=== PATIENT | female | born 1955 | race Caucasian/White ===

== ENCOUNTER → 2017-09-27 | Day surgery (SDC) | payer OTHER ==
--- NOTE | 2017-09-26 19:31 | MH ---
cc: GEOVANNA COMBS DATE OF ADMISSION: 09/27/2017 HISTORY OF PRESENT ILLNESS: The patient is a 62-year-old 0 female with a history of pelvic pain and a right ovarian cyst. The patient desires operative intervention as she feels the pain is worsening. PAST MEDICAL HISTORY: Her past medical history is significant for: 1. Depression. 2. Duodenal ulcer. 3. Hypertension. 4. Arthritis. 5. Osteopenia. 6. Diverticular disease. PAST SURGICAL HISTORY: Her surgeries are: 1. LASIK. 2. Tonsillectomy. 3. Adenoidectomy. 4. Left ankle surgery. 5. Right hand surgery. MEDICATIONS: Her medications are: 1. Fosamax. 2. Vitamin D. ALLERGIES: 1. CELEXA. 2. PHENERGAN. 3. MELOXICAM. OB HISTORY: Negative. GYNECOLOGIC HISTORY: No history of STDs or abnormal Pap smears. She went through menopause around the age 46 and has had no bleeding since then. FAMILY HISTORY: Her father had heart disease. Her mother had dementia. Maternal aunt had breast cancer. SOCIAL HISTORY: Negative for cigarettes, alcohol or street drugs. 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 PHYSICAL EXAMINATION: HEIGHT: 5 feet 7. WEIGHT: 128. VITAL SIGNS: Her blood pressure is 130/70. GENERAL: In general, she is in no acute distress. HEART: Regular rate and rhythm. LUNGS: Clear to auscultation bilaterally. ABDOMEN: The abdomen is soft, nontender and nondistended. LOWER EXTREMITIES: Nontender and nonedematous. PELVIC: On bimanual exam, no adnexal masses or tenderness noted. Normal sized uterus. IMAGING STUDIES: Her ultrasound shows a normal sized uterus and a right ovarian cyst that measures 3 cm with some complex features. It has been stable since May. LABORATORY DATA: She had a negative CA-125. IMPRESSION: 1. Pelvic pain. 2. Right ovarian cyst. PLAN: The plan is for a laparoscopic bilateral salpingo-oophorectomy. The risks, benefits and alternatives have been reviewed. The patient does desire to proceed. MD CEASAR Larry/JCC /6:36 PM /7:20 PM MTDPedro
--- NOTE | 2017-09-26 19:31 | MH ---
cc: GEOVANNA COMBS DATE OF ADMISSION: 09/27/2017 HISTORY OF PRESENT ILLNESS: The patient is a 62-year-old 0 female with a history of pelvic pain and a right ovarian cyst. The patient desires operative intervention as she feels the pain is worsening. PAST MEDICAL HISTORY: Her past medical history is significant for: 1. Depression. 2. Duodenal ulcer. 3. Hypertension. 4. Arthritis. 5. Osteopenia. 6. Diverticular disease. PAST SURGICAL HISTORY: Her surgeries are: 1. LASIK. 2. Tonsillectomy. 3. Adenoidectomy. 4. Left ankle surgery. 5. Right hand surgery. MEDICATIONS: Her medications are: 1. Fosamax. 2. Vitamin D. ALLERGIES: 1. CELEXA. 2. PHENERGAN. 3. MELOXICAM. OB HISTORY: Negative. GYNECOLOGIC HISTORY: No history of STDs or abnormal Pap smears. She went through menopause around the age 46 and has had no bleeding since then. FAMILY HISTORY: Her father had heart disease. Her mother had dementia. Maternal aunt had breast cancer. SOCIAL HISTORY: Negative for cigarettes, alcohol or street drugs. 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 PHYSICAL EXAMINATION: HEIGHT: 5 feet 7. WEIGHT: 128. VITAL SIGNS: Her blood pressure is 130/70. GENERAL: In general, she is in no acute distress. HEART: Regular rate and rhythm. LUNGS: Clear to auscultation bilaterally. ABDOMEN: The abdomen is soft, nontender and nondistended. LOWER EXTREMITIES: Nontender and nonedematous. PELVIC: On bimanual exam, no adnexal masses or tenderness noted. Normal sized uterus. IMAGING STUDIES: Her ultrasound shows a normal sized uterus and a right ovarian cyst that measures 3 cm with some complex features. It has been stable since May. LABORATORY DATA: She had a negative CA-125. IMPRESSION: 1. Pelvic pain. 2. Right ovarian cyst. PLAN: The plan is for a laparoscopic bilateral salpingo-oophorectomy. The risks, benefits and alternatives have been reviewed. The patient does desire to proceed. MD CEASAR Larry/JCC /6:36 PM /7:20 PM MTDPedro
--- NOTE | 2017-09-26 19:31 | MH ---
cc: GEOVANNA COMBS DATE OF ADMISSION: 09/27/2017 HISTORY OF PRESENT ILLNESS: The patient is a 62-year-old 0 female with a history of pelvic pain and a right ovarian cyst. The patient desires operative intervention as she feels the pain is worsening. PAST MEDICAL HISTORY: Her past medical history is significant for: 1. Depression. 2. Duodenal ulcer. 3. Hypertension. 4. Arthritis. 5. Osteopenia. 6. Diverticular disease. PAST SURGICAL HISTORY: Her surgeries are: 1. LASIK. 2. Tonsillectomy. 3. Adenoidectomy. 4. Left ankle surgery. 5. Right hand surgery. MEDICATIONS: Her medications are: 1. Fosamax. 2. Vitamin D. ALLERGIES: 1. CELEXA. 2. PHENERGAN. 3. MELOXICAM. OB HISTORY: Negative. GYNECOLOGIC HISTORY: No history of STDs or abnormal Pap smears. She went through menopause around the age 46 and has had no bleeding since then. FAMILY HISTORY: Her father had heart disease. Her mother had dementia. Maternal aunt had breast cancer. SOCIAL HISTORY: Negative for cigarettes, alcohol or street drugs. 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 PHYSICAL EXAMINATION: HEIGHT: 5 feet 7. WEIGHT: 128. VITAL SIGNS: Her blood pressure is 130/70. GENERAL: In general, she is in no acute distress. HEART: Regular rate and rhythm. LUNGS: Clear to auscultation bilaterally. ABDOMEN: The abdomen is soft, nontender and nondistended. LOWER EXTREMITIES: Nontender and nonedematous. PELVIC: On bimanual exam, no adnexal masses or tenderness noted. Normal sized uterus. IMAGING STUDIES: Her ultrasound shows a normal sized uterus and a right ovarian cyst that measures 3 cm with some complex features. It has been stable since May. LABORATORY DATA: She had a negative CA-125. IMPRESSION: 1. Pelvic pain. 2. Right ovarian cyst. PLAN: The plan is for a laparoscopic bilateral salpingo-oophorectomy. The risks, benefits and alternatives have been reviewed. The patient does desire to proceed. MD CEASAR Larry/JCC /6:36 PM /7:20 PM MTDPedro
[~2017-09-27] VITALS: Ht 170.2 cm; Wt 58.1 kg
[~2017-09-27] MED LIST: *morphine SULFATE 8 MG/ML PERIprocedure ONLY ONE; ACETAMINOPHEN 1000 MG/100 ML 100 ML IV ONE; APREPITANT 40 MG CAP ONE; BUPIVACAINE/EPINEPHRINE 0.25% PF 10 ML VIAL INFIL ONE; CHLORHEXIDINE GLUCONATE 2 % 1 PACK (2 CLOTHS) TOPICAL PRN; DEXAMETHASONE SOD PHOS 4 MG/ML VIAL IV ONE; DO NOT ADM ANY ANTICOAGULANT DRUGS PRN; FAMOTIDINE 20 MG/2 ML VIAL ONE; FOSA70TA PO; GLYCOPYRROLATE 1 MG/5 ML SYRINGE IV PUSH ONE; INSULIN HUMAN REGULAR 1,000 UNITS/10 ML VIAL SQ PRN; LACTATED RINGER'S 1000 ML IV PRN; LIDOCAINE HCL 1% PF 5 ML AMPULE OTHER ONE; LISI10TA3 PO; METOPROLOL TARTRATE 25 MG TAB PO PRN; MIDAZOLAM HCL 2 MG/2 ML VIAL IV ONE; MULT-65 PO; NEOSTIGMINE 3 MG/3 ML SYR IV ONE; ONDANSETRON HCL 4 MG/2 ML VIAL IV PUSH ONE; ONDANSETRON HCL 4 MG/2 ML VIAL IV PUSH PRN; POVIDONE IODINE 5% (ANTISEPSIS KIT) 4 APPLICATIONS EACH NARE PRN; PROPOFOL 200 MG/20 ML AMP IV ONE; ROCURONIUM INJ 50 MG/5 ML SYRINGE IV PUSH ONE; SODIUM CHLORID 0.9% 500 ML IV PRN; VITA1000 PO; ceFAZolin 2 GM PREMIX 50 ML IV SCH; ePHEDrine/NS 25 MG/5 ML SYR IV ONE; oxyCODONE/ACETAMINOPHEN 10 MG/325 MG TAB PO PRN; oxyCODONE/ACETAMINOPHEN 5 MG/325 MG TAB PO PRN
[2017-09-27 09:32] LABS: BASOPHIL # 0.1 TH/MM3 (0-0.2); BASOPHIL % 0.9 % (0.0-2.0); EOSINOPHIL # 0.1 TH/MM3 (0-0.4); EOSINOPHIL % 1.3 % (0.0-4.0); HEMATOCRIT 42.1 % (35.0-46.0); HEMOGLOBIN 14.1 GM/DL (11.6-15.3); LYMPHOCYTE # 1.1 TH/MM3 (1.0-4.8); MEAN CELL VOLUME 91.2 FL (80.0-100.0); MEAN CORPUSCULAR HEMOGLOBIN 30.4 PG (27.0-34.0); MEAN CORPUSCULAR HGB CONC 33.3 % (32.0-36.0); MEAN PLATELET VOLUME 8.1 FL (7.0-11.0); MONO % 6.8 % (0.0-8.0); MONOCYTE # 0.5 TH/MM3 (0-0.9); PLATELET COUNT 269 TH/MM3 (150-450); RED BLOOD COUNT 4.62 MIL/MM3 (4.00-5.30); RED CELL DISTRIBUTION WIDTH 14.4 % (11.6-17.2); WHITE BLOOD COUNT 6.7 TH/MM3 (4.0-11.0)
--- NOTE | 2017-09-27 12:20 | EKG ---
Date Performed: 09/27/2017 Time Performed: 09:16:46 PTAGE: 62 years EKG: Sinus rhythm NORMAL ECG PREVIOUS TRACING : 11/02/2015 11.03 Compared to the prior study, sinus rhythm has replaced junc tional rhythm. DOCTOR: Eliezer Jones Interpretating Date/Time 09/27/2017 12:15:19
--- NOTE | 2017-09-27 12:57 | MP ---
cc: SHANNAN VILLARREAL DATE OF SURGERY: 09/27/2017 PREOPERATIVE DIAGNOSIS Right ovarian cyst, pelvic pain. POSTOPERATIVE DIAGNOSIS Right ovarian cyst, pelvic pain. PROCEDURE Laparoscopic bilateral salpingo-oophorectomy. SURGEON Shannan Villarreal MD COMMUNITY ACTION WORKER Zulema Khoury. ANESTHESIA General plus local. ESTIMATED BLOOD LOSS Minimal. DRAINS Terry to gravity. SPECIMEN Bilateral tubes and ovaries. COUNTS Correct x2. DISPOSITION Stable in the PACU. FINDINGS Right complex ovarian cyst, normal tubes bilaterally, grossly normal left ovary, normal liver edge, normal gallbladder, normal appendix. DESCRIPTION OF PROCEDURE After informed consent was obtained the patient was taken to the operating room, prepped and draped in normal sterile fashion for surgery. Her legs were placed in the universal stirrups. The speculum was inserted into the vagina. The Terry catheter was placed sterilely. Because of severe atrophy I am unable to actually grasp the anterior lip of the cervix with a single-tooth tenaculum and thus, a sponge stick is inserted to provide manipulation vaginally. Gloves were changed and attention was turned to the abdominal portion of the case. The umbilical fold was injected with 0.25% Marcaine with epinephrine and a 5 mm skin incision was made and a 5 mm trocar is inserted under direct visualization and pneumoperitoneum was obtained. The findings previously noted are revealed. A second 10 mm trocar is placed in the right lower quadrant after being injected with local and a 10 mm trocar was inserted under direct visualization. A third port is placed in the left lower quadrant under direct visualization after being injected with local as well. Next, using the Enseal the infundibulopelvic ligament is identified and high up on the ligament, well away from the pelvic sidewall and the ureters. The pedicle is cauterized and then divided. Successive bites were taken until it is completely amputated from the tube and ovary from the mesosalpinx and also from the uterus. The same procedure is then carried out on the opposite side until both tubes and ovaries are completely amputated from their pelvic attachments. The EndoCatch bag was then inserted and the specimens removed without difficulty. Once this was done hemostasis was assured. The fascia was repaired using 0 Vicryl suture in a running fashion in the right lower quadrant. The abdomen is deflated. The trocars are removed and the skin is closed using 4-0 Monocryl suture in a subcuticular fashion. All instruments were removed from the patient's vagina. She is awakened and extubated and taken to recovery room in stable condition. MD CEASAR Larry/INOCENCIO /12:13 PM /12:46 PM
[2017-09-27 14:57] VITALS: BP 110/65; PULSE 60; RESP 18; TEMP 97.6; O2SAT 95
== END | disposition home or self-care (01) ==
LOC: HSDC 08:32
PROVIDERS: ATTEND Obstetrics & Gynecology
DX: D27.0 Benign neoplasm of right ovary (principal); D27.1 Benign neoplasm of left ovary; R10.2 Pelvic and perineal pain; I10 Essential (primary) hypertension; M85.80 Other specified disorders of bone density and structure, unspecified site; Z01.818 Encounter for other preprocedural examination
CPT/HCPCS: 00840; 58661; 84703; 85025; 86850; 86900; 86901; 88305; 88307; 93005; J0131; J1100; J2250; J2270; J2405; J2710; J3010; J7120; J8501

== ENCOUNTER 2017-12-28 07:48 | Observation (INO) | payer OTHER ==
[~2017-12-28] VITALS: Ht 170.2 cm; Wt 60.0 kg
[~2017-12-28 07:48] MED LIST changes: -*morphine SULFATE 8 MG/ML PERIprocedure ONLY ONE; -ACETAMINOPHEN 1000 MG/100 ML 100 ML IV ONE; -APREPITANT 40 MG CAP ONE; -BUPIVACAINE/EPINEPHRINE 0.25% PF 10 ML VIAL INFIL ONE; -CHLORHEXIDINE GLUCONATE 2 % 1 PACK (2 CLOTHS) TOPICAL PRN; -DEXAMETHASONE SOD PHOS 4 MG/ML VIAL IV ONE; -DO NOT ADM ANY ANTICOAGULANT DRUGS PRN; -FAMOTIDINE 20 MG/2 ML VIAL ONE; -GLYCOPYRROLATE 1 MG/5 ML SYRINGE IV PUSH ONE; -INSULIN HUMAN REGULAR 1,000 UNITS/10 ML VIAL SQ PRN; -LACTATED RINGER'S 1000 ML IV PRN; -LIDOCAINE HCL 1% PF 5 ML AMPULE OTHER ONE; -METOPROLOL TARTRATE 25 MG TAB PO PRN; -MIDAZOLAM HCL 2 MG/2 ML VIAL IV ONE; -NEOSTIGMINE 3 MG/3 ML SYR IV ONE; -ONDANSETRON HCL 4 MG/2 ML VIAL IV PUSH ONE; -ONDANSETRON HCL 4 MG/2 ML VIAL IV PUSH PRN; -POVIDONE IODINE 5% (ANTISEPSIS KIT) 4 APPLICATIONS EACH NARE PRN; -PROPOFOL 200 MG/20 ML AMP IV ONE; -ROCURONIUM INJ 50 MG/5 ML SYRINGE IV PUSH ONE; -SODIUM CHLORID 0.9% 500 ML IV PRN; -ceFAZolin 2 GM PREMIX 50 ML IV SCH; -ePHEDrine/NS 25 MG/5 ML SYR IV ONE; -oxyCODONE/ACETAMINOPHEN 10 MG/325 MG TAB PO PRN; -oxyCODONE/ACETAMINOPHEN 5 MG/325 MG TAB PO PRN
[2017-12-28 07:51] VITALS: BP 153/65; PULSE 94; RESP 19; TEMP 97.5; O2SAT 99
[2017-12-28 08:32] LABS: AUTOMATED NEUTROPHIL # 6.1 TH/MM3 (1.8-7.7); BASOPHIL # 0.1 TH/MM3 (0-0.2); BASOPHIL % 0.7 % (0.0-2.0); EOSINOPHIL # 0.1 TH/MM3 (0-0.4); EOSINOPHIL % 1.1 % (0.0-4.0); HEMATOCRIT 39.8 % (35.0-46.0); HEMOGLOBIN 13.9 GM/DL (11.6-15.3); LYMPH % 13.4 % (9.0-44.0); MEAN CORPUSCULAR HEMOGLOBIN 31.4 PG (27.0-34.0); MEAN CORPUSCULAR HGB CONC 34.9 % (32.0-36.0); MEAN PLATELET VOLUME 7.9 FL (7.0-11.0); MONO % 6.2 % (0.0-8.0); MONOCYTE # 0.5 TH/MM3 (0-0.9); NEUT % 78.6 % (16.0-70.0); PLATELET COUNT 308 TH/MM3 (150-450); RED BLOOD COUNT 4.42 MIL/MM3 (4.00-5.30); RED CELL DISTRIBUTION WIDTH 14.1 % (11.6-17.2); WHITE BLOOD COUNT 7.7 TH/MM3 (4.0-11.0)
[2017-12-28 08:53] LABS: BICARBONATE 30.3 MEQ/L (21.0-32.0); BLOOD UREA NITROGEN 19 MG/DL (7-18); CHLORIDE 101 MEQ/L (98-107); CREATININE 0.92 MG/DL (0.50-1.00); GLOMERULAR FILTRATION RATE 61 ML/MIN (>89); GLUCOSE,RANDOM 114 MG/DL (74-106); SODIUM (NA) 138 MEQ/L (136-145)
[2017-12-28 08:57] LABS: TROPONIN I LESS THAN 0.02 NG/ML (0.02-0.05)
[2017-12-28 09:34] VITALS: BP 140/68; PULSE 75; RESP 16; TEMP 97.8; O2SAT 100
--- NOTE | 2017-12-28 09:36 | PD ---
HPI Chief Complaint: Chest Pain Time Seen by Provider: 09:27 Travel History International Travel<30 days: No Contact w/Intl Traveler<30days: No Traveled to known affect area: No History of Present Illness HPI 62-year-old female came to the emergency room with history of substernal chest pain radiating slightly to the left side of the chest upon exertion for past 2 days. Patient says the pain is like a pressure kind of a sensation and currently is about 3-4. It does get worse upon exertion. She went to urgent care yesterday where she had an EKG and a chest x-ray done which were normal. She was asked to come to the emergency room to get a cardiac workup. Patient says the pain continues. And she got worried and came here. Vital signs are stable. Patient was recently diagnosed with hypertension and has been started on Cipro for past 10 days which she has been taking as per the prescription direction. Patient is not a smoker. 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 Her father of heart attack at the age of 76. Patient has never had any cardiac workup in her life. No associated shortness of breath, dizziness, lightheadedness or syncopal episode. [facility] Past Medical History Narrative Medical List of her past medical, surgical, social and family history is reviewed from the nursing note. Arthritis: Yes (Rheumatoid ) Asthma: No Autoimmune Disease: No Anxiety: No Depression: No Heart Rhythm Problems: No Cancer: No Cardiovascular Problems: Yes (IRREGULAR RHYTHM) High Cholesterol: No Chemotherapy: No Congestive Heart Failure: No COPD: No Cerebrovascular Accident: No Diabetes: No Diminished Hearing: No Endocrine: No Gastrointestinal Disorders: Yes (Ulcer in duodenum, GERD) GERD: Yes Genitourinary: No Hepatitis: No Hiatal Hernia: No Hypertension: Yes Immune Disorder: No Kidney Stones: No Musculoskeletal: Yes (Scoliosis) Neurologic: No Psychiatric: No Reproductive: Yes (CYST ON RIGHT OVARY) Respiratory: No Radiation Therapy: No Sickle Cell Disease: No Sleep Apnea: No Thyroid Disease: No Ulcer: Yes (History) Tetanus Vaccination: > 5 Years Influenza Vaccination: Yes Menopausal: Yes : 0 Para: 0 Past Surgical History Abdominal Surgery: No AICD: No Arteriovenous Shunt: No Body Medical Devices: RIGHT WRIST PLATE Cardiac Surgery: No Ear Surgery: No Endocrine Surgery: No Eye Surgery: Yes (Lasik) Genitourinary Surgery: No Gynecologic Surgery: Yes (ovary sx) Insulin Pump: No Joint Replacement: No Oral Surgery: Yes (tonsil and adenoid) Pacemaker: No Thoracic Surgery: No Tonsillectomy: Yes (AND ADENOIDS) Other Surgery: Yes Social History Alcohol Use: Yes (OCCASIONALLY) Tobacco Use: No Substance Use: No Allergies-Medications (Allergen,Severity, Reaction): Coded Allergies: cephalexin (Verified Allergy, Severe, hives, 12/28/17) meloxicam (Verified Adverse Reaction, Severe, bleeding, 12/28/17) promethazine (Verified Adverse Reaction, Severe, hallucinations, 12/28/17) tramadol (Verified Adverse Reaction, Severe, VOMITING, GASTRIC PAIN, ) Comments List of her allergies reviewed from the nursing note. Reported Meds & Prescriptions Reported Meds & Active Scripts Active Reported Multi-Vitamin Daily (Multiple Vitamin) 1 Tab Tab 1 Tab PO DAILY Vitamin D-1000 (Cholecalciferol) 1,000 Unit Tab 1,000 Units PO DAILY Fosamax (Alendronate Sodium) 70 Mg Tab 70 Mg PO Q7D Lisinopril 10 Mg Tab 5 Mg PO DAILY Narrative Medication List of her home medications reviewed from the nursing note. Review of Systems Except as stated in HPI: all other systems reviewed are Neg Cardiovascular: Positive: Chest Pain or Discomfort Physical Exam Narrative GENERAL: Awake, alert, anxious, no obvious distress SKIN: Focused skin assessment warm/dry. HEAD: Atraumatic. Normocephalic. EYES: Pupils equal and round. No scleral icterus. No injection or drainage. ENT: No nasal bleeding or discharge. Mucous membranes pink and moist. NECK: Trachea midline. No JVD. CARDIOVASCULAR: Regular rate and rhythm. No murmur appreciated. RESPIRATORY: No accessory muscle use. Clear to auscultation. Breath sounds equal bilaterally. GASTROINTESTINAL: Abdomen soft, non-tender, nondistended. Hepatic and splenic margins not palpable. MUSCULOSKELETAL: No obvious deformities. No clubbing. No cyanosis. No edema. NEUROLOGICAL: Awake and alert. No obvious cranial nerve deficits. Motor grossly within normal limits. Normal speech. PSYCHIATRIC: Appropriate mood and affect; insight and judgment normal. Data Data Last Documented VS Vital Signs Date Time Temp Pulse Resp B/P (MAP) Pulse Ox O2 Delivery O2 Flow Rate FiO2 12/28/17 09:34 97.8 75 16 140/68 (92) 100 Room Air Orders Orders Electrocardiogram (12/28/17 07:55) Complete Blood Count With Diff (12/28/17 07:55) Basic Metabolic Panel (Bmp) (12/28/17 07:55) Ckmb (Isoenzyme) Profile (12/28/17 07:55) Troponin I (12/28/17 07:55) CKMB (12/28/17 08:16) CKMB% (12/28/17 08:16) Chest, Single Ap (12/28/17 ) Aspirin Chew (Aspirin Chew) (12/28/17 09:45) Admit Order (Ed Use Only) (12/28/17 09:44) Labs Laboratory Tests Test 12/28/17 08:16 White Blood Count 7.7 TH/MM3 Red Blood Count 4.42 MIL/MM3 Hemoglobin 13.9 GM/DL Hematocrit 39.8 % Mean Corpuscular Volume 90.0 FL Mean Corpuscular Hemoglobin 31.4 PG Mean Corpuscular Hemoglobin Concent 34.9 % Red Cell Distribution Width 14.1 % Platelet Count 308 TH/MM3 Mean Platelet Volume 7.9 FL Neutrophils (%) (Auto) 78.6 % Lymphocytes (%) (Auto) 13.4 % Monocytes (%) (Auto) 6.2 % Eosinophils (%) (Auto) 1.1 % Basophils (%) (Auto) 0.7 % Neutrophils # (Auto) 6.1 TH/MM3 Lymphocytes # (Auto) 1.0 TH/MM3 Monocytes # (Auto) 0.5 TH/MM3 Eosinophils # (Auto) 0.1 TH/MM3 Basophils # (Auto) 0.1 TH/MM3 CBC Comment DIFF FINAL Differential Comment Blood Urea Nitrogen 19 MG/DL Creatinine 0.92 MG/DL Random Glucose 114 MG/DL Calcium Level 9.0 MG/DL Sodium Level 138 MEQ/L Potassium Level 4.1 MEQ/L Chloride Level 101 MEQ/L Carbon Dioxide Level 30.3 MEQ/L Anion Gap 7 MEQ/L Estimat Glomerular Filtration Rate 61 ML/MIN Total Creatine Kinase 107 U/L Creatine Kinase MB 1.5 NG/ML Troponin I LESS THAN 0.02 NG/ML MDM Medical Decision Making Medical Screen Exam Complete: Yes Emergency Medical Condition: Yes Medical Record Reviewed: Yes Interpretation(s) Twelve-lead EKG was reviewed by me. Normal sinus rhythm, normal axis, nonspecific ST-T wave changes. Heart rate of 65 bpm. Differential Diagnosis ACS, non-STEMI, nonspecific chest pain Narrative Course 9:48 AM blood test results which were done in triage are back and within acceptable limits. I have ordered a chest x-ray and given her 2 baby aspirins to chew. In my opinion given her age, symptoms and family history she should be ruled out for ACS. I've admitted her to the chest pain center. I discussed this with the patient and she is okay with the plan. Procedures EKG Prior to Arrival: No Diagnosis Primary Impression: Chest pain Qualified Codes: R07.9 - Chest pain, unspecified Admitting Information Admitting Physician Requests: David Ledesma MD Dec 28, 2017 09:36
[2017-12-28] MEDS ORDERED: ASPIRIN 81 MG CHEW TAB CHEW ONE (09:45)
--- NOTE | 2017-12-28 10:13 | RADRPT ---
EXAM DATE/TIME: 12/28/2017 09:56 [facility] COMPARISON: No previous studies available for comparison. INDICATIONS : Chest pain. MEDICAL HISTORY : Hypertension. SURGICAL HISTORY : None. ENCOUNTER: Initial ACUITY: 1 week PAIN SCORE: 5/10 LOCATION: Left middle chest FINDINGS: A single view of the chest demonstrates the lungs to be symmetrically aerated without evidence of mas s, infiltrate or effusion. The cardiomediastinal contours are unremarkable. Osseous structures are intact with S-shaped scoliosis of the thoracic or lumbar spine. CONCLUSION: No acute disease. Eric Riggins MD on December 28, 2017 at 10:10 Board Certified Radiologist. This report was verified electronically.
[2017-12-28] MEDS ORDERED: ALPRAZolam 0.25 MG TAB PO PRN (11:00)
--- NOTE | 2017-12-28 11:11 | HHI.HP ---
HPI Primary Care Physician Sean Weeks DO Chief Complaint Chest pain History of Present Illness This is a 62-year-old female that presents to ED via private vehicle with complaint of having intermittent chest discomforts beginning 6 days ago. First episode was a tightness in the left side her chest lasting about 5 minutes. She thinks she may been doing some housework when it began. No associated shortness of breath, nausea, or diaphoresis. 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 Then yesterday was similar left-sided pressure occurred also lasting a couple minutes while doing nothing strenuous. Patient has history of hypertension and had been on lisinopril 10 mg daily but was feeling lightheaded while climbing a ladder on . She followed up with her PCP, found her blood pressure was okay and told her to stop taking lisinopril. The patient's blood pressure started to be running in the 140s again and so her PCP put her back on lisinopril but at 5 mg. States the last few time she has had her cholesterol checked, it has been okay. States she's never been on medication for it. Denies recent illness. Denies fevers or chills. Review of Systems General: Patient denies fevers, chills recent, and recent travel HEENT: Patient denies headache, sore throat, difficulty swallowing. Cardiovascular: Has the chest discomfort as mentioned above. Denies sensation of heart beating rapidly or irregularly. No syncope. Denies diaphoresis. Respiratory: Denies shortness of breath or inspirational chest discomfort. Denies coughing wheezing or hemoptysis. GI: Patient denies nausea, vomiting, diarrhea, abdominal pain, bloody stools. Musculoskeletal: Patient denies joint pain or edema. Denies calf pain or edema. Neurovascular: Patient denies numbness, tingling, weakness in extremities. Denies headache. Endocrine: Denies polyuria and polydipsia. Hematologic: Denies easy bruising. Skin: Denies rash or itching. Past Family Social History Allergies: Coded Allergies: cephalexin (Verified Allergy, Severe, hives, 12/28/17) meloxicam (Verified Adverse Reaction, Severe, bleeding, 12/28/17) promethazine (Verified Adverse Reaction, Severe, hallucinations, 12/28/17) tramadol (Verified Adverse Reaction, Severe, VOMITING, GASTRIC PAIN, ) Past Medical History Hypertension, rheumatoid arthritis, osteopenia, scoliosis. Denies hyperlipidemia, diabetes, and known CAD. Past Surgical History Oophorectomy. Tonsillectomy. Right wrist. Reported Medications Reported Meds & Active Scripts Active Reported Multi-Vitamin Daily (Multiple Vitamin) 1 Tab Tab 1 Tab PO DAILY Vitamin D-1000 (Cholecalciferol) 1,000 Unit Tab 1,000 Units PO DAILY Fosamax (Alendronate Sodium) 70 Mg Tab 70 Mg PO Q7D Lisinopril 10 Mg Tab 5 Mg PO DAILY Active Ordered Medications Current Medications Medications (Trade) Dose Ordered Sig/Oriana Route Start Time Stop Time Status Last Admin (Tylenol) 500 mg Q4H PRN PO 12/28/17 11:00 UNV (Zofran Inj) 4 mg Q6H PRN IV PUSH 12/28/17 11:00 UNV (Aspirin) 325 mg DAILY PO 12/29/17 09:00 UNV (Xanax) 0.25 mg Q8H PRN PO 12/28/17 11:00 UNV (Prinivil) 5 mg DAILY PO 12/29/17 09:00 UNV Family History States that her father at age 76 of a myocardial infarction. Her mother had CVAs in her 60s. Social History Lifetime nonsmoker. Denies illicit drugs. States that she will drink a bottle of wine over the weekend. 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 Physical Exam Vital Signs Vital Signs Date Time Temp Pulse Resp B/P (MAP) Pulse Ox O2 Delivery O2 Flow Rate FiO2 12/28/17 09:34 97.8 75 16 140/68 (92) 100 Room Air 12/28/17 09:30 75 16 100 Room Air 12/28/17 07:51 97.5 94 19 153/65 (94) 99 Physical Exam GENERAL: This is a well-nourished, well-developed patient, in no apparent distress. Patient speaks in clear complete sentences. Patient is pleasant. HEENT: Head is atraumatic and normocephalic. Neck is supple without lymphadenopathy and trachea is midline. No JVD or carotid bruits. CARDIOVASCULAR: Regular rate and rhythm without murmurs, gallops, or rubs. RESPIRATORY: Clear to auscultation. Breath sounds equal bilaterally. No wheezes , rales, or rhonchi. Chest wall is nontender. No use of accessory muscles. GASTROINTESTINAL: Abdomen is nontender, nondistended. Abdomen soft. No obvious pulsatile mass or bruit. No CVA tenderness. Strong femoral pulses bilaterally. Normal bowel sounds in all quadrants. MUSCULOSKELETAL: Patient is moving upper and lower extremities freely. No calf tenderness or edema, no Homans sign. Strong pulses in upper and lower extremities. NEUROLOGICAL: Patient is alert and oriented. Cranial nerves 2-12 are grossly intact. No focal deficits and speech is clear. SKIN: No rash and turgor is normal. Laboratory Laboratory Tests Test 12/28/17 08:16 White Blood Count 7.7 Red Blood Count 4.42 Hemoglobin 13.9 Hematocrit 39.8 Mean Corpuscular Volume 90.0 Mean Corpuscular Hemoglobin 31.4 Mean Corpuscular Hemoglobin Concent 34.9 Red Cell Distribution Width 14.1 Platelet Count 308 Mean Platelet Volume 7.9 Neutrophils (%) (Auto) 78.6 Lymphocytes (%) (Auto) 13.4 Monocytes (%) (Auto) 6.2 Eosinophils (%) (Auto) 1.1 Basophils (%) (Auto) 0.7 Neutrophils # (Auto) 6.1 Lymphocytes # (Auto) 1.0 Monocytes # (Auto) 0.5 Eosinophils # (Auto) 0.1 Basophils # (Auto) 0.1 CBC Comment DIFF FINAL Differential Comment Blood Urea Nitrogen 19 Creatinine 0.92 Random Glucose 114 Calcium Level 9.0 Sodium Level 138 Potassium Level 4.1 Chloride Level 101 Carbon Dioxide Level 30.3 Anion Gap 7 Estimat Glomerular Filtration Rate 61 Total Creatine Kinase 107 Creatine Kinase MB 1.5 Troponin I LESS THAN 0.02 Result Diagram: 12/28/17 0816 12/28/17 0816 Imaging Last 24 hours Impressions Chest X-Ray 12/28/17 0000 Signed Impressions: Service Date/Time: Thursday, December 28, 2017 09:56 - CONCLUSION: No acute disease. Eric Riggins MD Course Initial EKG is sinus rhythm without significant ST segment depressions or elevations. Caprini VTE Risk Assessment Caprini VTE Risk Assessment: Mod/High Risk (score >= 2) Caprini Risk Assessment Model Point Value = 1 Point Value = 2 Point Value = 3 Point Value = 5 Age 41-60 Minor surgery BMI > 25 kg/m2 Swollen legs Varicose veins or History of unexplained or recurrent spontaneous Oral contraceptives or hormone replacement Sepsis (< 1 month) Serious lung disease, including pneumonia (< 1 month) Abnormal pulmonary function Acute myocardial infarction Congestive heart failure (< 1 month) History of inflammatory bowel disease Medical patient at bed rest Age 61-74 Arthroscopic surgery Major open surgery (> 45 min) Laparoscopic surgery (> 45 min) Malignancy Confined to bed (> 72 hours) Immobilizing plaster cast Central venous access Age >= 75 History of VTE Family history of VTE Factor V Leiden Prothrombin [id number] Lupus anticoagulant Anticardiolipin antibodies Elevated serum homocysteine Heparin-induced thrombocytopenia Other congenital or acquired thrombophilia Stroke (< 1 month) Elective arthroplasty Hip, pelvis, or leg fracture Acute spinal cord injury (< 1 month) Prophylaxis Regimen Total Risk Factor Score Risk Level Prophylaxis Regimen 0-1 Low Early ambulation 2 Moderate Order ONE of the following: *Sequential Compression Device (SCD) *Heparin 5000 units SQ BID 3-4 Higher Order ONE of the following medications: *Heparin 5000 units SQ TID *Enoxaparin/Lovenox 40 mg SQ daily (WT < 150 kg, CrCl > 30 mL/min) *Enoxaparin/Lovenox 30 mg SQ daily (WT < 150 kg, CrCl > 10-29 mL/min) *Enoxaparin/Lovenox 30 mg SQ BID (WT < 150 kg, CrCl > 30 mL/min) AND/OR *Sequential Compression Device (SCD) 5 or more Highest Order ONE of the following medications: *Heparin 5000 units SQ TID (Preferred with Epidurals) *Enoxaparin/Lovenox 40 mg SQ daily (WT < 150 kg, CrCl > 30 mL/min) *Enoxaparin/Lovenox 30 mg SQ daily (WT < 150 kg, CrCl > 10-29 mL/min) *Enoxaparin/Lovenox 30 mg SQ BID (WT < 150 kg, CrCl > 30 mL/min) AND *Sequential Compression Device (SCD) Assessment and Plan Assessment and Plan * Chest pain: Patient will continue to have serial cardiac enzymes and EKGs for ruling out purposes. She will be seen by Dr. Lin cardiology in the chest pain center. She'll likely have a stress test if she rules out. She will be discharged home if her stress test was nonischemic. Follow-up with PCP and return to ED for interval issues. * Hypertension: Continue current medication. Patient is stable at this time. She is agreeable to this plan. Ander Hawkins Dec 28, 2017 11:11
[2017-12-28 11:15] VITALS: BP 144/70; PULSE 65; RESP 15; TEMP 97.8; O2SAT 99
[2017-12-28 11:51] LABS: TROPONIN I LESS THAN 0.02 NG/ML (0.02-0.05)
[2017-12-28] MEDS ORDERED: ACETAMINOPHEN 500 MG CPLT PO PRN (12:00)
[2017-12-28] MEDS ORDERED: ONDANSETRON HCL 4 MG/2 ML VIAL IV PUSH PRN (12:00)
[2017-12-28 13:28] VITALS: BP 142/65; PULSE 66; RESP 16; TEMP 97.4; O2SAT 100
[2017-12-28 13:41] VITALS: PULSE 67
[2017-12-28 14:53] LABS: TROPONIN I LESS THAN 0.02 NG/ML (0.02-0.05)
--- NOTE | 2017-12-28 16:07 | TR ---
Date Performed: 12/28/2017 Time Performed: 15:31:36 DOCTOR: Licha Lin DRUG LIST: CLINICAL HISTORY: REASON FOR TEST: Chest pain REASON FOR ENDING: OBSERVATION: CONCLUSION: DEANN PROTOCOL. NO CP. TEST STOPPED AFTER EXCEEDING GOAL HR SECONDARY TO SOB AND LEG FATIGUE.Maximum PP=042 % Max HR Ujuyvrvn=730.0% Maximum AA=426/86 Total Exercise Time=3:31 COMMENTS:
--- NOTE | 2017-12-28 16:15 | EKG ---
Date Performed: 12/28/2017 Time Performed: 11:12:41 PTAGE: 62 years EKG: Sinus rhythm NORMAL ECG Since PREVIOUS TRACING , no significant change noted PREVIOUS TRACIN12/28/2017 08.15 DOCTOR: Licha Lin Interpretating Date/Time 12/28/2017 16:13:35
--- NOTE | 2017-12-28 16:15 | EKG ---
Date Performed: 12/28/2017 Time Performed: 08:15:23 PTAGE: 62 years EKG: Sinus rhythm NORMAL ECG Since PREVIOUS TRACING , no significant change noted PREVIOUS TRACIN09/27/2017 09.16 DOCTOR: Licha Lin Interpretating Date/Time 12/28/2017 16:13:18
--- NOTE | 2017-12-28 16:16 | HHI.DCPOC ---
Discharge Care Plan Diagnosis: (1) Chest pain (2) HTN (hypertension) Goals to Promote Your Health * To prevent worsening of your condition and complications * To maintain your health at the optimal level Directions to Meet Your Goals Take your medications as prescribed Follow your dietary instruction Follow activity as directed Keep your appointments as scheduled Take your immunizations and boosters as scheduled If your symptoms worsen call your PCP, if no PCP go to Urgent Care Center or Emergency Room Smoking is Dangerous to Your Health. Avoid second hand smoke Call the 24-hour hour crisis hotline for domestic abuse at Ander Hawkins Dec 28, 2017 16:16
--- NOTE | 2017-12-29 08:37 | EKG ---
Date Performed: 12/28/2017 Time Performed: 14:10:00 PTAGE: 62 years EKG: Sinus rhythm NORMAL ECG PREVIOUS TRACING : 12/28/2017 11.12 Since previous tracing, no significant change noted DOCTOR: Eliezer Jones Interpretating Date/Time 12/29/2017 08:35:18
[2017-12-29] MEDS ORDERED: ASPIRIN 325 MG TAB PO SCH (09:00)
[2017-12-29] MEDS ORDERED: LISINOPRIL 5 MG TAB PO SCH (09:00)
== END 2017-12-28 18:00 | disposition home or self-care (01) ==
LOC: NEPC 07:48 → NEDA 09:46 → NEPFCDU 12:25
PROVIDERS: ADMIT Internal Medicine Interventional Cardiology; ATTEND Internal Medicine Interventional Cardiology
DX: R07.9 Chest pain, unspecified (principal); I10 Essential (primary) hypertension; M06.9 Rheumatoid arthritis, unspecified; Z87.11 Personal history of peptic ulcer disease; K21.9 Gastro-esophageal reflux disease without esophagitis; M41.9 Scoliosis, unspecified; Z79.899 Other long term (current) drug therapy; M85.80 Other specified disorders of bone density and structure, unspecified site
CPT/HCPCS: 71045; 80048; 82550; 82552; 84484; 85025; 93005; 93017; 99285; G0378